=== PATIENT | female | born 1985 | race African-American/Black ===

== ENCOUNTER 2022-05-12 00:14 | Emergency (ER) | payer SELFPAY ==
[~2022-05-12] VITALS: Ht 160 cm; Wt 61.2 kg
[2022-05-12 00:31] VITALS: BP 115/60
== END 2022-05-12 00:37 | disposition left against medical advice (07) ==
LOC: ER 00:18
DX: Z53.21 Procedure and treatment not carried out due to patient leaving prior to being seen by health care provider (principal)